=== PATIENT | male | born 1980 | race Caucasian/White ===

== ENCOUNTER 2017-03-11 17:10 | Emergency (ER) | payer OTHER ==
[~2017-03-11] VITALS: Ht 195.6 cm; Wt 115.7 kg
[2017-03-11 17:50] VITALS: BP 144/90
[2017-03-11] MEDS ORDERED: KETOROLAC TROMETH 60MG/2ML VIAL IM ONE (19:00)
[2017-03-11] MEDS ORDERED: IBUPROFEN 800 MG TAB PO ONE (19:15)
== END 2017-03-11 19:50 | disposition home or self-care (01) ==
LOC: ER 17:15
DX: S86.912A Strain of unspecified muscle(s) and tendon(s) at lower leg level, left leg, initial encounter (principal); W22.8XXA Striking against or struck by other objects, initial encounter; Y93.89 Activity, other specified; Y92.89 Other specified places as the place of occurrence of the external cause; Y99.0 Civilian activity done for income or pay; F17.210 Nicotine dependence, cigarettes, uncomplicated
CPT/HCPCS: 73562; 99284; J1885